=== PATIENT | male | born 1950 | race Hispanic/Latino ===

== ENCOUNTER 2019-11-10 12:35 | Emergency (ER) | payer MEDICARE, OTHER ==
[2019-11-10 14:12] LABS: Bilirubin Direct 0.1 mg/dL (0-0.2); Bilirubin Total 0.5 mg/dL (0.2-1.0); Protein, Total 6.8 g/dL (6.4-8.2)
--- NOTE | 2019-11-10 14:37 | ER ---
Nurse's Notes [facility] Name: Romeo Knox Age: 69 yrs Sex: Male : 1950 Arrival Date: 11/10/2019 Time: 12:38 Bed 18 Private MD: Diagnosis: Abnormal results of liver function studies Presentation: 11/09 12:52 Chief complaint: Patient states: Sent by PCP for elevated cholesterol, triglycerides ca1 and HDL. States, "I think I need my liver checked. They told me to come to the ER" Blood works was done a week ago. Coronavirus screen: Proceed with normal triage. Patient denies a cough. Patient denies shortness of breath or difficulty breathing. Patient denies measured and/or subjective temperature greater than 100.4F prior to today's visit. Patient denies travel on a cruise ship or to a country the [facility] currently lists as an affected area. Patient denies contact with known and/or suspected case of COVID-19. Ebola Screen: Patient negative for fever greater than or equal to 101.5 degrees Fahrenheit, and additional compatible Ebola Virus Disease symptoms Patient denies exposure to infectious person. Patient denies travel to an Ebola-affected area in the 21 days before illness onset. No symptoms or risks identified at this time. Initial Sepsis Screen: Does the patient meet any 2 criteria? No. Patient's initial sepsis screen is negative. Does the patient have a suspected source of infection? No. Patient's initial sepsis screen is negative. Risk Assessment: Do you want to hurt yourself or someone else? Patient reports no desire to harm self or others. Onset of symptoms was November 10, 2019. 12:52 Method Of Arrival: Ambulatory ca1 12:52 Acuity: ARCHIE 3 ca1 Historical: - Allergies: 12:58 No Known Allergies; ca1 - Home Meds: 12:58 allopurinol 300 mg Oral tab 1 tab once daily [Active]; atorvastatin 40 mg oral tab 1 ca1 tab once daily [Active]; losartan 100 mg oral tab 1 tab once daily [Active]; indomethacin 50 mg Oral cap 1 cap 2 times per day [Active]; - PMHx: 12:58 Hypertension; High Cholesterol; Arthritis; ca1 - PSHx: 12:58 None; ca1 - Immunization history:: Adult Immunizations up to date. - Social history:: Smoking status: Patient denies any tobacco usage or history of. Patient uses Patient/guardian denies using alcohol, street drugs, The patient lives with family. - Family history:: not pertinent. Screenin:30 Abuse screen: Denies threats or abuse. Denies injuries from another. Nutritional jl7 screening: No deficits noted. Tuberculosis screening: No symptoms or risk factors identified. Fall Risk None identified. Assessment: 13:30 General: Appears in no apparent distress. comfortable, Behavior is calm, cooperative, jl7 appropriate for age. Pain: Denies pain. Neuro: Level of Consciousness is awake, alert, obeys commands, Oriented to person, place, time, situation. Cardiovascular: Patient's skin is warm and dry. Respiratory: Airway is patent Respiratory effort is even, unlabored, Respiratory pattern is regular, symmetrical. Derm: Skin is pink, warm \\T\\ dry. Vital Signs: 12:52 BP 165 / 98; Pulse 79; Resp 15 S; Temp 97.4(TE); Pulse Ox 100% on R/A; Weight 67.13 kg ca1 (R); Height 5 ft. 11 in. (180.34 cm) (R); 12:52 Body Mass Index 20.64 (67.13 kg, 180.34 cm) ca1 ED Course: 12:38 Patient arrived in ED. ag5 12:55 Triage completed. ca1 12:58 Arm band placed on right wrist. ca1 13:02 Susan Sun MD is Attending Physician. ma2 13:11 Amada Moran RN is Primary Nurse. jl7 13:30 Patient has correct armband on for positive identification. Bed in low position. Call jl7 light in reach. Side rails up X 1. 13:30 Initial lab(s) drawn, by az, sent to lab. jl7 14:44 No provider procedures requiring assistance completed. Patient did not have IV access jl7 during this emergency room visit. Administered Medications: No medications were administered Outcome: 14:36 Discharge ordered by . ma2 14:44 Discharged to home ambulatory. jl7 14:44 Condition: stable 14:44 Discharge instructions given to patient, Instructed on discharge instructions, follow up and referral plans. Demonstrated understanding of instructions, follow-up care. 14:45 Patient left the ED. jl7 Signatures: Amada Moran RN RN jl7 Susan Sun MD MD ma2 Mandy Coronel, RN RN ca1 [place], [place] ag5
--- NOTE | 2019-11-10 14:38 | EDPHYS ---
Physician Documentation [facility] Name: Romeo Knox Age: 69 yrs Sex: Male : 1950 Arrival Date: 11/10/2019 Time: 12:38 Bed 18 Private MD: ED Physician Susan Sun HPI: 11/09 14:33 This 69 yrs old Male presents to ER via Ambulatory with complaints of Abnormal ma2 Lab Results. 14:33 Onset: The symptoms/episode began/occurred gradually, 3 week(s) ago. Severity of ma2 symptoms: At their worst the symptoms were very mild in the emergency department the symptoms are unchanged. The patient has not experienced similar symptoms in the past. sent form clinic for liver function test . Historical: - Allergies: 12:58 No Known Allergies; ca1 - Home Meds: 12:58 allopurinol 300 mg Oral tab 1 tab once daily [Active]; atorvastatin 40 mg oral tab 1 ca1 tab once daily [Active]; losartan 100 mg oral tab 1 tab once daily [Active]; indomethacin 50 mg Oral cap 1 cap 2 times per day [Active]; - PMHx: 12:58 Hypertension; High Cholesterol; Arthritis; ca1 - PSHx: 12:58 None; ca1 - Immunization history:: Adult Immunizations up to date. - Social history:: Smoking status: Patient denies any tobacco usage or history of. Patient uses Patient/guardian denies using alcohol, street drugs, The patient lives with family. - Family history:: not pertinent. ROS: 14:33 Constitutional: Negative for fever, chills, and weight loss. ma2 14:33 All other systems are negative. Exam: 14:33 Constitutional: This is a well developed, well nourished patient who is awake, alert, ma2 and in no acute distress. Head/Face: Normocephalic, atraumatic. Eyes: Pupils equal round and reactive to light, extra-ocular motions intact. Lids and lashes normal. Conjunctiva and sclera are non-icteric and not injected. Cornea within normal limits. Periorbital areas with no swelling, redness, or edema. ENT: Nares patent. No nasal discharge, no septal abnormalities noted. Tympanic membranes are normal and external auditory canals are clear. Oropharynx with no redness, swelling, or masses, exudates, or evidence of obstruction, uvula midline. Mucous membranes moist. Neck: Trachea midline, no thyromegaly or masses palpated, and no cervical lymphadenopathy. Supple, full range of motion without nuchal rigidity, or vertebral point tenderness. No Meningismus. Chest/axilla: Normal chest wall appearance and motion. Nontender with no deformity. No lesions are appreciated. Cardiovascular: Regular rate and rhythm with a normal S1 and S2. No gallops, murmurs, or rubs. Normal PMI, no JVD. No pulse deficits. Respiratory: Lungs have equal breath sounds bilaterally, clear to auscultation and percussion. No rales, rhonchi or wheezes noted. No increased work of breathing, no retractions or nasal flaring. Abdomen/GI: Soft, non-tender, with normal bowel sounds. No distension or tympany. No guarding or rebound. No evidence of tenderness throughout. Skin: Warm, dry with normal turgor. Normal color with no rashes, no lesions, and no evidence of cellulitis. MS/ Extremity: Pulses equal, no cyanosis. Neurovascular intact. Full, normal range of motion. Neuro: Awake and alert, GCS 15, oriented to person, place, time, and situation. Cranial nerves II-XII grossly intact. Motor strength 5/5 in all extremities. Sensory grossly intact. Cerebellar exam normal. Normal gait. Vital Signs: 12:52 BP 165 / 98; Pulse 79; Resp 15 S; Temp 97.4(TE); Pulse Ox 100% on R/A; Weight 67.13 kg ca1 (R); Height 5 ft. 11 in. (180.34 cm) (R); 12:52 Body Mass Index 20.64 (67.13 kg, 180.34 cm) ca1 MDM: 13:02 Patient medically screened. ma2 14:33 Differential Diagnosis abnormal lab result. Data reviewed: vital signs, nurses notes. ma2 Counseling: I had a detailed discussion with the patient and/or guardian regarding: the historical points, exam findings, and any diagnostic results supporting the discharge/admit diagnosis, the presence of at least one elevated blood pressure reading (>120/80) during this emergency department visit, the need for outpatient follow up. ED course: patient has no symptoms his cholesterol and triglycerides were high and so his pcp send him here for lft, from [place] . 11/09 13:18 Order name: LFT's; Complete Time: 14:15 jl7 Administered Medications: No medications were administered Disposition: 11/10/19 14:36 Discharged to Home. Impression: Abnormal results of liver function studies. - Condition is Stable. - Discharge Instructions: Fat and Cholesterol Restricted Diet, [id number]. - Medication Reconciliation Form, Thank You Letter, Antibiotic Education, Prescription Opioid Use form. - Follow up: Private Physician; When: Tomorrow; Reason: Continuance of care. Signatures: Dispatcher [employer] Amada Gonzalez RN RN jl7 Susan Sun MD MD ma2 Mandy Coronel RN RN ca1 Corrections: (The following items were deleted from the chart) 14:45 14:36 11/10/2019 14:36 Discharged to Home. Impression: Abnormal results of liver jl7 function studies. Condition is Stable. Forms are Medication Reconciliation Form, Thank You Letter, Antibiotic Education, Prescription Opioid Use. Follow up: Private Physician; When: Tomorrow; Reason: Continuance of care. ma2
[2019-11-10 14:52] VITALS: BP 165/98; TEMP 97.4; O2SAT 100
== END 2019-11-10 14:45 | disposition home or self-care (01) ==
LOC: ER 12:35
DX: R94.5 Abnormal results of liver function studies (principal); I10 Essential (primary) hypertension; E78.00 Pure hypercholesterolemia, unspecified
CPT/HCPCS: 36415; 80076; 99283